=== PATIENT | male | born 1940 | race Caucasian/White ===

== ENCOUNTER → 2020-01-06 12:48 | Outpatient (CLI) | payer MEDICARE, SELFPAY ==
--- NOTE | ~2020-01-06 | XR_ITS ---
EXAMINATION: XR abdomen/kub 1V EXAM DATE: 01/06/2020 13:04 INDICATION: Gross hematuria, pain with urination, dysuria. History of kidney stones 10 years ago. TECHNIQUE: Frontal projection(s) of the abdomen for interpretation. There is no prior study for molly dougherty. FINDINGS: There is moderate amount of colonic stool and gas. No small bowel dilation, nonobstructiv e bowel gas pattern. There is a 4 mm calcification projecting over right upper quadrant, appears to be just above the renal contour. If it is a calyceal stone, would be likely nonobstructing superior c alyceal stone. There is no organomegaly suspected. There are bony degenerative changes. Sternot tello wire. IMPRESSION: Right upper quadrant density, possible superior calyceal stone. Reviewed, dictated and finalized at location A.
== END ==
PROVIDERS: PCP Internal Medicine; Visit Provider Nurse Practitioner Adult Health
DX: R31.0 Gross hematuria (principal); R93.5 Abnormal findings on diagnostic imaging of other abdominal regions, including retroperitoneum
CPT/HCPCS: 74018

== ENCOUNTER 2020-04-07 10:03 | Outpatient (CLI) | payer MEDICARE, SELFPAY ==
--- NOTE | ~2020-04-07 | XR_ITS ---
EXAMINATION: XR chest 2V EXAM DATE: 04/07/2020 10:24 INDICATION: Edema, shortness of breath. TECHNIQUE: Frontal and lateral projections of the chest obtained and reviewed. Comparison is made to prior examination from 05/20/2018. FINDINGS: Sternotomy wires are present without findings to suggest sternal dehiscence. Right middle l obe granuloma. Mild hyperinflation. The lungs are otherwise clear. There are no pleural effusions. The cardiomediastinal silhouette is within normal limits. There is no pneumothorax suspected. The b ones and soft tissues are unremarkable. There is no significant interval change. IMPRESSION: No acute cardiopulmonary findings. Reviewed, dictated and finalized at location B.
[2020-04-07 10:52] LABS: Basophils Percent Auto 0.6 % (0.2-1.2); Eosinophils Absolute Auto 0.3 K/mm3 (0-0.3); Eosinophils Percent Auto 4.7 % (0-4.4); Hemoglobin 15.1 g/dL (14.0-18.0); Immature Granulocyte Absolute 0.02 K/mm3 (0.00-0.031); Immature Granulocyte Percent A 0.3 % (0-0.5); Lymphocytes Absolute Auto 1.72 K/mm3 (0.9-3.2); Lymphocytes Percent Auto 26.7 % (18.3-44.2); Mean Corpuscular HGB Conc 34.3 g/dl (32-36); Mean Corpuscular Hemoglobin 30.5 pg (26-34); Mean Corpuscular Volume 88.9 fl (80-100); Mean Platelet Volume 8.4 fl (7.4-10.4); Monocytes Absolute Auto 0.7 K/mm3 (0.1-0.6); Monocytes Percent Auto 10.6 % (2.6-8.5); Neutrophils Absolute Auto 3.7 K/mm3 (1.3-6.7); Neutrophils Percent Auto 57.1 % (45.5-73.1); Platelet Count Result 130 k/mm3 (150-375); Red Blood Count 4.95 M/mm3 (4.6-6.20); Red Cell Distribution Width 13.2 % (11.5-14.5); White Blood Count 6.4 K/mm3 (4.5-10.0)
--- NOTE | 2020-04-07 10:54 | ECG_ITS ---
Measurements Intervals [place] Rate: 70 P: 73 VT: 183 QRS: -5 QRSD: 116 T: 76 QT: 404 QTc: 436 Interpretive Statements SINUS RHYTHM VENTRICULAR PREMATURE COMPLEX BORDERLINE T WAVE ABNORMALITY- HIGH LATERAL LEADS BORDERLINE ECG Electronically Signed On 04-07-2020 11:56:17 CDT by Seymour Burnham D.O.
[2020-04-07 11:06] LABS: Blood Urea Nitrogen 16 mg/dL (9-20); Calcium 9.4 mg/dL (8.4-10.2); Carbon Dioxide 29 mmol/L (22-30); Chloride 102 mmol/L (98-107); Estimated Glomerular Filt Rate > 60; Glucose 216 mg/dL (75-110); Potassium 4.5 mmol/L (3.4-5.0); Sodium 137 mmol/L (137-145)
[2020-04-07 11:15] LABS: NT Pro B Type Natriuretic Pept 114 PG/ML (5-100)
== END 2020-04-07 10:04 | disposition home or self-care (01) ==
LOC: ANHIMG 10:07
PROVIDERS: PCP Internal Medicine; Visit Provider Clinical Nurse Specialist
DX: R60.9 Edema, unspecified (principal); R06.02 Shortness of breath; R94.31 Abnormal electrocardiogram [ECG] [EKG]
CPT/HCPCS: 36415; 71046; 80048; 83880; 85025; 93005

== ENCOUNTER 2020-04-21 14:50 | Outpatient (CLI) | payer MEDICARE, SELFPAY ==
--- NOTE | 2020-04-21 15:02 | ECHO_ITS ---
Patient Info Name: Cachorro Lozano Age: 80 years : 1940 Gender: Male Ht: 68 in Wt: 195 lbs BSA: 2.08 m2 HR: 65 bpm BP: 160 / 87 mmHg Heart Rhythm: Sinus Rhythm Technical Quality: Good Exam Date: 04/21/2020 3:13 PM Exam Location: [facility] Pulmonary Patient Status: Outpatient Admit Date: 04/21/2020 Staff Ordering Physician: Martha Reynolds Inbound Sales Manager: Rodney Marks RDCS Attending Provider: Martha Reynolds Referring Physician: Rodolfo DUMONT; Exam Type: CA echo doppler color flow Study Info Indications R60.9 - Edema, unspecified Complete two-dimensional, color flow and Doppler transthoracic echocardiogram is performed. History/Risk Factors Edema, CAD s/p CABG 2003. Summary 1. Normal left ventricular size with moderate concentric hypertrophy. Visual ejection fraction is 50-55%, measured is 56%. Overall good left ventricular function, though with hypokinesis of the apex, apical septal wall and apical lateral wall. Grade 1 diastolic dysfunction. 2. No significant valve disease. 3. Normal sinus rhythm. Left Ventricle Left ventricular chamber dimension is normal. Left ventricular systolic function is normal, estimated at 50-55%. There is moderately increased left ventricular wall thickness. Left ventricular septal wall motion is normal. The left ventricular diastolic function is grade I diastolic dysfunction. Right Ventricle Right ventricular chamber dimension is normal. Right ventricular systolic function is normal. Left Atria Left atrial chamber dimension is normal. Right Atria Right atrial chamber dimension is normal. Aortic Valve The aortic valve is trileaflet. There is no aortic valve sclerosis. There is no aortic valve stenosis. There is trace aortic valve regurgitation. Pulmonic Valve The pulmonic valve is normal. There is no pulmonic valve stenosis. There is no pulmonic regurgitation. Mitral Valve The mitral valve has normal leaflets. There is no mitral valve stenosis. There is trace mitral valve regurgitation. Tricuspid Valve The tricuspid valve leaflets are normal. There is no significant tricuspid valve stenosis. There is no tricuspid valve regurgitation. No pulmonary hypertension, estimated pulmonary arterial systolic pressure is Empty. Pericardium/Pleural The pericardium appears normal. There is no pericardial effusion. Inferior Vena Cava Normal inferior vena cava with >50% collapse upon inspiration consistent with Empty right atrial pressure, 5 mmHg. Aorta The aortic root size at the sinus of Valsalva is normal. The prox ascending aorta size is normal. Left Ventricular Outflow Tract Name Value Normal LVOT Doppler LVOT Peak Gradient 3 mmHg LVOT Mean Gradient 2 mmHg LVOT VTI 19 cm LVOT VTI/AV VTI Ratio 1.1 Mitral Valve Name Value Normal MV Doppler MV
== END 2020-04-21 14:51 | disposition home or self-care (01) ==
PROVIDERS: PCP Internal Medicine; Visit Provider Clinical Nurse Specialist
DX: R60.9 Edema, unspecified (principal)
CPT/HCPCS: 93306

== ENCOUNTER 2020-05-03 08:10 | Outpatient (CLI) | payer MEDICARE, SELFPAY ==
--- NOTE | ~2020-05-03 | US_ITS ---
US arterial ankle brachial ind INDICATION: Skin cancer. Previous bypass surgery. TECHNIQUE: Segmental pressures and plethysmographic and Doppler waveforms of the brachial and lower e xtremity arteries were obtained. COMPARISON: None. FINDINGS: Right and left brachial artery pressures of 127 mm Hg and 129 mm Hg, respectively, are concordant (no rmal difference <= 30 mmHg). The right ankle-brachial index (JOE) is 1.09 (normal >= 0.9-1.0). The right great toe-brachial index (TBI) is 0.84 (normal >= 0.60). The left JOE is 1.31. The left TBI is 0.93. IMPRESSION: 1. Normal bilateral ankle-brachial indices. Reviewed, dictated and finalized at location A.
== END 2020-05-03 08:11 | disposition home or self-care (01) ==
PROVIDERS: PCP Internal Medicine; Visit Provider Clinical Nurse Specialist
DX: M79.89 Other specified soft tissue disorders (principal)
CPT/HCPCS: 93922

== ENCOUNTER 2020-05-12 07:30 | Outpatient (CLI) | payer MEDICARE, SELFPAY ==
--- NOTE | ~2020-05-12 | NM_ITS ---
EXAMINATION: NM talib stress w perfusion DATE: 05/12/2020 10:42 INDICATION: Coronary artery disease presenting with shortness of breath and fatigue. TECHNIQUE: Rest images were obtained following intravenous administration of 10 mCi Tc99m tetrofosmin (Myoview). The patient was infused intravenously with Lexiscan (Regadenoson). Then, 31.77 mCi Tc99m tetrofosmin (Myoview) was administered intravenously, and stress images were obtained. Repeat stress images were obtained in prone position. Data was reconstructed into short axis and horizontal and jennifer tical long axis SPECT images. Gated SPECT images were also obtained. COMPARISON: None. FINDINGS: Moderate severity nonreversible fixed perfusion defect consistent with infarct involving th e apical, apical lateral, anterior apical, mid anterior and mid anterolateral segments. Mild reversib le ischemia at the anterior basilar segment with additional reversible ischemia extending into the ad jacent region of infarct at the mid anterior segment. There is normal left ventricular chamber size w ith mild global hypokinesis and more focal hypokinesis and decreased wall thickening at the mid anter ior segment. Left ventricular ejection fraction measures 43%. IMPRESSION: 1. Small region of mild ischemia at the mid anterior and basilar anterior segments. 2. Larger moderate severity fixed infarct involving the apical, apical lateral, apical anterior, mid anterior and mid anterolateral segments. 3. Left ventricular ejection fraction measuring 43%. Reviewed, dictated and finalized at location A. IMPRESSION: 1. Small region of mild ischemia at the mid anterior and basilar anterior segme nts. 2. Larger moderate severity fixed infarct involving the apical, apical lateral, apical anterior, mid anterior and mid anterolateral segments. 3. Left ventricular ejection fraction measuring 43%.
--- NOTE | 2020-05-12 08:01 | EST_ITS ---
Patient Info Name: Cachorro Lozano Age: 80 years : 1940 Gender: Male Ht: 68 in Wt: 195 lbs BSA: 2.08 m2 HR: 56 bpm BP: 130 / 74 mmHg Heart Rhythm: Sinus Rhythm Exam Date: 05/12/2020 9:04 AM Exam Location: [facility] Stress Patient Status: Outpatient Admit Date: 05/12/2020 Staff Ordering Physician: Martha Reynolds Attending Provider: Martha Reynolds Nurse: Sarah Flanagan, ANP, ACNP-BC Exam Type: CA stress talib w NM Study Info Indications - Atherosclerotic Heart Disease A regadenoson stress test was performed. Summary 1. No abnormal ST/T wave changes with lexiscan. 2. Follow up on SPECT images. Protocol: Lexiscan Stress ECG Details Stage: REST Duration (min): 1 min : 8 sec HR (bpm): 55 SBP (mmHg): 130 DBP (mmHg): 74 Stage: REST Duration (min): 10 min : 3 sec HR (bpm): 61 SBP (mmHg): 130 DBP (mmHg): 74 Stage: STAGE 1 Duration (min): 0 min : 59 sec HR (bpm): 79 SBP (mmHg): 143 DBP (mmHg): 90 Stage: RECOVERY Duration (min): 1 min : 0 sec HR (bpm): 78 SBP (mmHg): 143 DBP (mmHg): 90 Stage: RECOVERY Duration (min): 2 min : 0 sec HR (bpm): 79 SBP (mmHg): 143 DBP (mmHg): 90 Stage: RECOVERY Duration (min): 3 min : 0 sec HR (bpm): 78 SBP (mmHg): 152 DBP (mmHg): 82 Stage: RECOVERY Duration (min): 4 min : 0 sec HR (bpm): 78 SBP (mmHg): 152 DBP (mmHg): 82 Stage: RECOVERY Duration (min): 4 min : 2 sec HR (bpm): 77 SBP (mmHg): 152 DBP (mmHg): 82 Rest HR: 61 bpm Peak HR: 86 bpm Rest Sys BP: 130 mmHg Peak Sys BP: 152 mmHg Max Pred HR: 141 bpm % Max Pred HR: 61 % Target HR: 120 bpm Max RPP: 13,072 bpm*mmHg Termination Reason: Completed protocol Cardiac Symptoms: Shortness of breath Total Time: 1 min : 0 sec Rest Comer BP: 74 mmHg Peak [place] BP: 82 mmHg Total Dose: 0.4 mg Resting ECG Normal sinus rhythm. Stress ECG No abnormal ST/T wave changes with lexiscan. Arrhythmias Occasional PVCs. Report Signatures
== END 2020-05-12 07:31 | disposition home or self-care (01) ==
PROVIDERS: PCP Internal Medicine; Visit Provider Clinical Nurse Specialist
DX: I25.10 Atherosclerotic heart disease of native coronary artery without angina pectoris (principal); R06.02 Shortness of breath; R53.83 Other fatigue
CPT/HCPCS: 78452; 93017; A9502

== ENCOUNTER 2020-05-26 02:39 | Outpatient (CLI) | payer MEDICARE, SELFPAY ==
[2020-05-26 18:39] LABS: SARS-CoV-2 RNA PCR Negative
== END 2020-05-26 02:40 | disposition home or self-care (01) ==
LOC: ANHCOVIDDT 02:40
PROVIDERS: PCP Internal Medicine; Visit Provider Internal Medicine Cardiovascular Disease
DX: Z01.812 Encounter for preprocedural laboratory examination (principal); Z20.828 Contact with and (suspected) exposure to other viral communicable diseases
CPT/HCPCS: 87635; C9803; U0003

== ENCOUNTER 2020-05-28 05:08 | Day surgery (SDC) | payer MEDICARE, SELFPAY ==
[2020-05-27 14:03] VITALS: BMI 29.6
[2020-05-28] VITALS (16 sets, daily range): BP systolic 109–135; BP diastolic 63–81; PULSE 54–69; RESP 10–21; TEMP 36.2–37; O2SAT 94–97; BMI 29.0
[2020-05-28 09:42] LABS: Basophils Percent Auto 0.5 % (0.2-1.2); Eosinophils Absolute Auto 0.3 K/mm3 (0-0.3); Hemoglobin 15.4 g/dL (14.0-18.0); Immature Granulocyte Absolute 0.02 K/mm3 (0.00-0.031); Immature Granulocyte Percent A 0.3 % (0-0.5); Lymphocytes Absolute Auto 1.68 K/mm3 (0.9-3.2); Lymphocytes Percent Auto 25.5 % (18.3-44.2); Mean Corpuscular Hemoglobin 30.5 pg (26-34); Mean Corpuscular Volume 87.1 fl (80-100); Mean Platelet Volume 8.9 fl (7.4-10.4); Monocytes Absolute Auto 0.6 K/mm3 (0.1-0.6); Monocytes Percent Auto 9.6 % (2.6-8.5); Neutrophils Absolute Auto 3.9 K/mm3 (1.3-6.7); Neutrophils Percent Auto 59.1 % (45.5-73.1); Platelet Count Result 125 k/mm3 (150-375); Red Blood Count 5.05 M/mm3 (4.6-6.20); White Blood Count 6.6 K/mm3 (4.5-10.0)
[2020-05-28 09:43] LABS: INR 1.1; Prothrombin Time 13.6 Seconds (11.1-14.7)
[2020-05-28 10:12] LABS: Anion Gap 8 mmol/L (8-16); Blood Urea Nitrogen 20 mg/dL (9-20); Calcium 9.1 mg/dL (8.4-10.2); Carbon Dioxide 29 mmol/L (22-30); Chloride 102 mmol/L (98-107); Estimated CRCL calculation 71 ml/min; Estimated Glomerular Filt Rate > 60; Glucose 192 mg/dL (75-110); Sodium 139 mmol/L (137-145)
--- NOTE | 2020-05-28 10:46 | WPDMODSED ---
Moderate Sedation Note-Pt Data Patient Data Diagnosis: Abnormal stress test, CAD/CABG. fatigue, BOLDEN Present Complaint: fatigue Procedure to be performed/Plan: Left heart catheterization with selective left and right coronary angiography with bypass graft angiography and left ventriculography and hemodynamics and possible percutaneous intervention and stent implantation Allergies Allergy/AdvReac Type Severity Reaction Status Date / Time No Known Allergies Allergy Verified 09/09/19 10:02 Home Medications Medication Instructions Recorded Confirmed Type aspirin 81 mg tablet,delayed 81 mg PO DAILY 09/09/19 05/27/20 History release furosemide 40 mg tablet 40 mg PO QAM 09/09/19 05/27/20 History potassium chloride 20 mEq 20 meq PO DAILY 09/09/19 05/27/20 History tablet,extended release vitamin B complex 1 tablet PO DAILY 09/09/19 05/27/20 History tamsulosin 0.4 mg capsule 0.4 mg PO DAILY #90 cap 01/06/20 05/27/20 Rx cetirizine 10 mg tablet 10 mg PO DAILY tablet 02/11/20 05/27/20 History cholecalciferol (vitamin D3) 125 125 mcg PO DAILY 02/11/20 05/27/20 History mcg (5,000 unit) capsule fluticasone propionate 50 2 spray NASAL DAILY #15.8 ml 03/09/20 05/27/20 Rx mcg/actuation nasal spray,suspension metformin 500 mg tablet 500 mg PO BID #180 tablet 03/09/20 05/27/20 Rx ezetimibe 10 mg-simvastatin 40 mg 1 tablet PO DAILY #90 tablet 03/24/20 05/27/20 Rx tablet finasteride 5 mg tablet 5 mg PO DAILY #90 tablet 04/06/20 05/27/20 Rx losartan 50 mg tablet 50 mg PO DAILY #90 tablet 04/07/20 05/27/20 Rx glimepiride 4 mg tablet 4 mg PO QAM #90 tablet 04/13/20 05/27/20 Rx hydroxyzine HCl 10 mg tablet 10 mg PO .at bedtime PRN #30 tablet 04/14/20 05/27/20 Rx sertraline 100 mg tablet 100 mg PO DAILY #90 tablet 05/07/20 05/27/20 Rx cyanocobalamin (vitamin B-12) 100 mcg PO DAILY 05/27/20 05/27/20 History [Vitamin B-12] glucosamine-chondroitin 1 cap PO DAILY 05/27/20 05/27/20 History metoprolol succinate 25 mg PO DAILY 05/27/20 05/27/20 History multivitamin 1 tablet PO DAILY 05/27/20 05/27/20 History bjexr-[id number]-dyv-ryy-qsmi oil 1 cap PO DAILY 05/27/20 05/27/20 History Current Medications: Active Medications Sodium Chloride (Normal Saline Iv) 500 mls @ 100 mls/hr IV CONT .Q5H KELECHI Sedation/Anesthesia: No previous sedation/anesthesia problems (including family history). [facility] Past Medical History Medical History Basal cell carcinoma of skin 10/2019 CAD (coronary artery disease) Hypercholesterolemia Hypertension Squamous cell cancer of skin of forearm Type 2 diabetes mellitus Surgical History Surgical History H/O sinus surgery 1989 S/P triple vessel bypass 2005 Family History Family History Father Family history of cardiovascular disease Family history of emphysema, Onset Age: 64 Hypertension Mother Family history of cardiovascular disease Family history of cardiac disorder Daughter Asthma Fibromyalgia Narcolepsy Son Hypertension Social History Social History Smoking status: Never smoker Second hand tobacco smoke exposure: Yes Alcohol intake: never Substance use: never Substance use type: does not use Living arrangements: with family Gender identity (if verbalized by the patient): Male Spiritual care concerns: No Mod Sed Physical Exam Physical Exam Pre Procedural Exam: Normal: Appearance, Eyes, Ears, Nose, Neck ( supple, normal range of motion), Throat ( posterior hypopharynx clear, nonerythematous), Airway ( normal anatomy, no obstruction), Lungs ( clear to auscultation bilaterally), Heart Size, Heart Rate, Heart Rhythm, Neuro Exam, Abdomen, Liver, Extremities ( healed median sternotomy scar) and Skin Hours since solid foods: 12 Hours since liquid intake:
--- NOTE | 2020-05-28 11:58 | PM.PROC ---
Procedure Note - Detailed Date of procedure: 05/28/20 Pre-op diagnosis: abnormal stress test, hx of CAD Post-op diagnosis: same Procedure performed: Left heart catheterization with left and right coronary angiography, bypass graft angiography, left ventricular hemodynamics Description of procedure: BRIEF HISTORY OF PRESENT ILLNESS: Patient is a pleasant 80-year-old male with a history of JAYSON on CPAP, hypertension, dyslipidemia, CAD with prior 3 vessel CABG 2005, diabetes mellitus with progressive shortness of breath, fatigue and declining activity tolerance who underwent noninvasive ischemic evaluation which revealed mid and basal anterior ischemia with large fixed defects apical anterolateral segments with EF 43% referred for coronary angiography to delineate coronary anatomy and bypass graft patency. PROCEDURES PERFORMED: 1. Left heart catheterization 2. Selective left and right coronary angiography 3. Left ventricular hemodynamics 4. Selective bypass graft angiography 4. Moderate/conscious sedation administration CATHETERS UTILIZED: Left coronary system- 5 [place] JL4 catheter Right coronary system- 5 [place] JR4 catheter Left ventriculography and hemodynamics- 5 [place] angled pigtail catheter STRONG to LAD- 5 [place] JUAN catheter SVG to RCA, SVG to OM- 5 [place] JR4 catheter PROCEDURE IN DETAIL: After verbal and written informed consent was obtained the patient, risks, benefits, and alternatives explained in detail the patient agreed to proceed with the plan of care as outlined above. The patient was subsequently brought to the cardiac catheterization lab, placed on the cardiac catheterization table, and prepped and draped in the usual sterile fashion. Utilizing approximately 16cc of 1% subcutaneous Lidocaine, the right groin was then locally anesthetized. Utilizing the modified Seldinger technique, a 5 [place] arterial vascular access sheath was inserted in the right common femoral artery easily and without complications. Through this access, coronary angiography was subsequently obtained in multiple standard re-projections. Following this, bypass graft angiography was performed in multiple re-projections. Then, a 5 [place] angled pigtail catheter was advanced retrograde across aortic valve into the cavity of the left ventricle. Left ventriculography was not performed, however, pullback across aortic valve was subsequently recorded. The vascular access sheath and angiographic catheters were flushed before and after catheter exchanges. At the conclusion of the diagnostic portion of the procedure, all angiographic guidewires and catheters were removed and the 5 [place] arterial vascular access sheath was then pulled and satisfactory hemostasis was achieved using manual compression. There no complications noted at the conclusion of the diagnostic portion of the study. MODERATE SEDATION/ANESTHESIA ADMINISTRATION: Patient reports no prior problems with sedation/anesthesia. Please see pre-sedation noted for physical examination documentation. Sedation start time was 1052 and end time was 1139 for a total intra-service/procedure face-face time of 47 minutes. A total of 2 mg intravenous Versed and a total of 50 mcg intravenous Fentanyl in multiple divided doses was administered for moderate sedation. Moderate sedation was administered by qualified/certified observer Tania Owens RN under my supervision with intra-procedure [id number] observation and management throughout the entirety of the procedure. There were no other issues or complications and patient tolerated the procedure well. See post-anesthesia documentation. Anesthesia: local and other (moderate/conscious sedation) Surgeon: Pedro Luis Thompson MD Estimated blood loss (mL): 10 Drains: No Packing: No Pathology: none sent Complications: No immediate complications Condition: stable Disposition: same day Findings: CORONARY ANGIOGRAPHY: The LEFT MAIN arose from the left titus
== END 2020-05-28 17:27 | disposition home or self-care (01) ==
PROVIDERS: PCP Internal Medicine; Visit Provider Internal Medicine Cardiovascular Disease
PROC: 4A023N7 Measurement of Cardiac Sampling and Pressure, Left Heart, Percutaneous Approach (ICD-10-PCS; CPT 93459; principal; 2020-05-28 10:00)
DX: R94.39 Abnormal result of other cardiovascular function study (principal); I25.10 Atherosclerotic heart disease of native coronary artery without angina pectoris; G47.33 Obstructive sleep apnea (adult) (pediatric); I10 Essential (primary) hypertension; E78.5 Hyperlipidemia, unspecified; E11.9 Type 2 diabetes mellitus without complications; R06.02 Shortness of breath; R53.83 Other fatigue
CPT/HCPCS: 36415; 80048; 85025; 85610; 93459; A9270; C1769; C1887; C1894; J1644; J2250; J3010; J7040

== ENCOUNTER → 2020-12-18 01:57 | Outpatient (CLI) | payer MEDICARE, SELFPAY ==
[2020-12-18 18:53] LABS: SARS-CoV-2 RNA PCR Negative
== END ==
PROVIDERS: PCP Family Medicine; Visit Provider Internal Medicine Critical Care Medicine
DX: Z01.812 Encounter for preprocedural laboratory examination (principal); Z20.822 Contact with and (suspected) exposure to COVID-19
CPT/HCPCS: C9803; U0003; U0005

== ENCOUNTER 2020-12-21 09:05 | Outpatient (CLI) | payer MEDICARE, SELFPAY ==
--- NOTE | 2021-01-09 09:51 | WPDSLEEPSTUD ---
Sleep Study Ordering Provider: Selina El MD Interpreting Physician: Selina El MD Sleep Study Type: CPAP Titration Height: 1.73 m Weight: 83.21 kg Body Mass Index: 27.8 Neck Circumference (inches): 16 [place]: 10 Reason for Sleep Study known JAYSON with increased central apneas on his download, increased hypersomnolenc; he returns for titration and possible BiPAP Sleep History Cachorro Lozano is a 80 year old man with known JAYSON who has been on CPAP 12 cm with worsening sleep. He had a cardiac surgery in 2004, has had pulmonary edema which improved wearing CPAP. His download shows that he is compliant, using his device for long periods, 10 hours a day with increased numbers of central apneas. He has CHF with an EF of 43% on an echo 05/27/2020. Without CPAP he constantly snores loudly. He rarely awakens at night with heartburn, belching or coughing. He frequently awakens from sleep feeling short of breath. CPAP, sinus medications and cardiac medications help him sleep for comfortably. He frequently has trouble sleeping with a cold. He frequently wakes up gasping for breath at night and frequently has breathing problems at night observed by others. He rarely sweats excessively at night. He occasionally notices his heart pounding or beating irregularly night. He frequently falls asleep during the day, frequently falls asleep involuntarily but never while driving. He does not have loss of muscle tone with strong emotion. He does not have daytime difficulties due to excessive sleepiness. He occasionally feels paralyzed on waking or falling asleep. He occasionally has vivid dreamlike scenes upon awakening or falling asleep. He never feels afraid to go to sleep. He occasionally has nightmares, occasionally remembers his dreams and occasionally has racing thoughts. He rarely feels sad or depressed. He frequently has anxiety. He occasionally has muscular tension. He rarely notices parts of his body jerking. He frequently kicks at night. He occasionally has crawling and aching feelings in his legs. He rarely has any kind of leg pain at night. He does not have morning jaw pain and rarely grinds his teeth at night. He rarely is bothered by pain during the day, rarely awakened by pain at night and rarely wakes up feeling stiff in the morning. He occasionally wakes up with sore achy muscles and pain in the spine. He takes sedatives, has memory problems, concentration difficulties, insomnia, nightmares and sexual problems. His normal bedtime is 11:00 p.m. falling asleep within 30-40 minutes typically waking once at night to urinate. He stays awake for 20 minutes before he is able to return to sleep. He wakes in the morning at 7:00 a.m.. He estimates 8 hours of sleep at night. His weekend schedule is the same. He takes naps in the afternoon. A short nap is not refreshing. He is usually drowsy in the morning for 2 hours or longer. Habits: Never smoked tobacco. Caffeine 1 serving of tea daily. No alcohol or recreational drugs. [facility] Past Medical History Medical History (Updated 01/09/21 @ 11:54 by Selina El MD) Basal cell carcinoma of skin 10/2019 CAD (coronary artery disease) Hematuria urine negative for blood Kidney stones (~2009) L1 vertebral fracture Squamous cell cancer of skin of forearm (~2017) Type 2 diabetes mellitus Surgical History Surgical History H/O sinus surgery 1989 S/P triple vessel bypass 2005 Family History Family History Father , age 64, heart problems Family history of cardiovascular disease Family history of emphysema, Onset Age: 64 Hypertension Mother , age 90, heart problems Family history of cardiovascular disease [place]
[2021-01-10 16:07] VITALS: BMI 27.8
== END 2020-12-21 09:06 | disposition home or self-care (01) ==
LOC: ANHCSM 09:06
PROVIDERS: PCP Family Medicine; Visit Provider Internal Medicine Critical Care Medicine
DX: G47.33 Obstructive sleep apnea (adult) (pediatric) (principal); G47.31 Primary central sleep apnea
CPT/HCPCS: 95811

== ENCOUNTER → 2021-01-28 00:50 | Outpatient (CLI) | payer MEDICARE, SELFPAY ==
[2021-01-28 21:02] LABS: SARS-CoV-2 RNA PCR Negative
== END ==
PROVIDERS: PCP Family Medicine; Visit Provider Internal Medicine Critical Care Medicine
DX: R68.89 Other general symptoms and signs (principal); Z20.822 Contact with and (suspected) exposure to COVID-19
CPT/HCPCS: C9803; U0003; U0005

== ENCOUNTER 2021-01-31 09:08 | Outpatient (CLI) | payer MEDICARE, SELFPAY ==
--- NOTE | 2021-02-14 15:09 | WPDSLEEPSTUD ---
Sleep Study Date of Study: 01/31/21 Ordering Provider: Selina El MD Interpreting Physician: Selina El MD Sleep Study Type: BiPAP Titration Height: 1.73 m Weight: 86.183 kg Body Mass Index: 28.8 Neck Circumference (inches): 17 [place]: 8 Reason for Sleep Study Attempted CPAP titration 12/21/2020, no optimal pressure; presents for BiPAP titration Sleep History Cachorro Lozano is a 80 year old man with known JAYSON who has been on CPAP 12 cm with worsening sleep. He had a cardiac surgery in 2004, has had pulmonary edema which improved wearing CPAP. His download shows that he is compliant, using his device for long periods, 10 hours a day with increased numbers of central apneas. He has CHF with an EF of 43% on an echo 05/27/2020. On December 21, 2020 he had a CPAP titration with no optimal pressure obtained, and had an EF of 43% on a Lexiscan on 05/12/2020. Without CPAP he constantly snores loudly. He rarely awakens at night with heartburn, belching or coughing. He frequently awakens from sleep feeling short of breath. CPAP, sinus medications and cardiac medications help him sleep for comfortably. He frequently has trouble sleeping with a cold. He frequently wakes up gasping for breath at night and frequently has breathing problems at night observed by others. He rarely sweats excessively at night. He occasionally notices his heart pounding or beating irregularly night. He frequently falls asleep during the day, frequently falls asleep involuntarily but never while driving. He does not have loss of muscle tone with strong emotion. He does not have daytime difficulties due to excessive sleepiness. He occasionally feels paralyzed on waking or falling asleep. He occasionally has vivid dreamlike scenes upon awakening or falling asleep. He never feels afraid to go to sleep. He occasionally has nightmares, occasionally remembers his dreams and occasionally has racing thoughts. He rarely feels sad or depressed. He frequently has anxiety. He occasionally has muscular tension. He rarely notices parts of his body jerking. He frequently kicks at night. He occasionally has crawling and aching feelings in his legs. He rarely has any kind of leg pain at night. He does not have morning jaw pain and rarely grinds his teeth at night. He rarely is bothered by pain during the day, rarely awakened by pain at night and rarely wakes up feeling stiff in the morning. He occasionally wakes up with sore achy muscles and pain in the spine. He takes sedatives, has memory problems, concentration difficulties, insomnia, nightmares and sexual problems. His normal bedtime is 11:00 p.m. falling asleep within 30-40 minutes typically waking once at night to urinate. He stays awake for 20 minutes before he is able to return to sleep. He wakes in the morning at 7:00 a.m.. He estimates 8 hours of sleep at night. His weekend schedule is the same. He takes naps in the afternoon. A short nap is not refreshing. He is usually drowsy in the morning for 2 hours or longer. Habits: Never smoked tobacco. Caffeine 1 serving of tea daily. No alcohol or recreational drugs. [facility] Past Medical History Medical History Basal cell carcinoma of skin 10/2019 CAD (coronary artery disease) Hematuria urine negative for blood Kidney stones (~2009) L1 vertebral fracture Squamous cell cancer of skin of forearm (~2017) Type 2 diabetes mellitus Surgical History Surgical History H/O sinus surgery 1989 S/P triple vessel bypass 2005 Family History Family History Father , age 64, heart problems Family history of cardiovascular disease Family history of emphysema, Onset Age:
[2021-02-14 15:37] VITALS: BMI 28.8
== END 2021-01-31 09:09 | disposition home or self-care (01) ==
LOC: ANHCSM 09:09
PROVIDERS: PCP Family Medicine; Visit Provider Internal Medicine Critical Care Medicine
DX: G47.33 Obstructive sleep apnea (adult) (pediatric) (principal)
CPT/HCPCS: 95811

== ENCOUNTER → 2021-10-28 09:53 | Outpatient (CLI) | payer MEDICARE, SELFPAY ==
[2021-10-28 16:30] LABS: Influenza A QL RT-PCR Negative (Negative); Influenza B QL RT-PCR Negative (Negative); SARS-CoV-2 RNA PCR Negative
== END ==
PROVIDERS: PCP Family Medicine; Visit Provider Family Medicine
DX: R09.89 Other specified symptoms and signs involving the circulatory and respiratory systems (principal); R50.9 Fever, unspecified; Z20.822 Contact with and (suspected) exposure to COVID-19
CPT/HCPCS: 87502; C9803; U0003; U0005

== ENCOUNTER → 2023-07-24 08:36 | Outpatient (CLI) | payer MEDICARE, SELFPAY ==
--- NOTE | ~2023-07-24 | US_ITS ---
Ultrasound of the Abdominal Aorta INDICATION: Abdominal aortic aneurysm TECHNIQUE: Grayscale, color Doppler, and pulsed Doppler images of the aorta and common iliac arteries were obtained. COMPARISON: None. FINDINGS: Maximum vascular dimensions are as follows: Proximal aorta: 2.8 cm Mid aorta: 1.9 cm Distal aorta: 1.8 cm Right common iliac artery: 0.9 cm Left common iliac artery: 1.0 cm There is no evidence of abdominal aortic aneurysm. IMPRESSION: No abdominal aortic aneurysm. Reviewed, dictated and finalized at location M.
== END ==
PROVIDERS: PCP Internal Medicine Cardiovascular Disease; Visit Provider Family Medicine
DX: Z13.6 Encounter for screening for cardiovascular disorders (principal)
CPT/HCPCS: 76775

== ENCOUNTER 2023-08-14 07:26 | Outpatient (CLI) | payer MEDICARE, SELFPAY ==
--- NOTE | ~2023-08-14 | CT_ITS ---
EXAMINATION: CTA chest DATE: 08/14/2023 08:09 INDICATION: Aortic aneurysm without rupture TECHNIQUE: Computed tomographic angiography (CTA) of the chest was performed with 100 mL Omnipque-350 intravenous contrast. Maximum intensity projection 3D-reconstructions of the aorta and other arterie s were constructed by the technologist on a separate workstation. The dose-length product (DLP) was 4 24.28 mGy-cm. Automated exposure control and iterative reconstruction technique were employed. COMPARISON: None. FINDINGS: The aorta measures 3.4 cm at the sinuses of Valsalva and 3 cm at the level of the main pulm onary artery. Maximum dimension of the descending aorta is 2.6 cm. No aortic dissection is identified . There is a 6 mm nodule in the superior segment of the right lower lobe. There is a 4 mm nodule of t he right upper lobe. There is a 6 mm nodule abutting the diaphragm in the right lower lobe on image 7 4. There is mild dependent atelectasis. No pleural effusion or pneumothorax. Small thyroid nodules me asure up to 5 mm on the right. There is a 2 cm subcutaneous cystic lesion in the midline anterior nec k projecting at the level of the thyroid. No pathologically enlarged thoracic lymph nodes are identif ied. The heart size is normal. 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 Changes of c oronary artery bypass grafting are noted. There is moderate thoracic spondylosis. IMPRESSION: 1. No aneurysm or dissection of aorta. 2. Multiple right lung nodules, likely old granulomatous disease. However, follow-up low-dose chest C T in 6-12 months is recommended. Reviewed, dictated and finalized at location L. TECHNICIAN IMPRESSION: 1. No aneurysm or dissection of aorta. 2. Multiple right lung nodules, likely old granulomatous disease. However, foll ow-up low-dose chest CT in 6-12 months is recommended.
[2023-08-14 07:59] LABS: Estimated Glomerular Filt Rate > 60
== END 2023-08-14 07:27 | disposition home or self-care (01) ==
PROVIDERS: PCP Family Medicine; Visit Provider Internal Medicine Cardiovascular Disease
DX: I71.21 Aneurysm of the ascending aorta, without rupture (principal); R91.8 Other nonspecific abnormal finding of lung field
CPT/HCPCS: 71275; Q9967

== ENCOUNTER 2024-03-21 07:16 | Outpatient (CLI) | payer MEDICARE, SELFPAY ==
--- NOTE | ~2024-03-21 | CT_ITS ---
CT of the Abdomen and Pelvis: Indication: Hematuria Technique: 2.5 mm axial scans were obtained through the abdomen and pelvis prior to and following in travenous administration of 130 cc of Omnipaque 350. Dose reduction technique was used on this scan b y utilizing automated exposure control and iterative reconstruction technique. The dose-length produc t (DLP) was 1102.91 mGy-cm. Findings: Scans through the lung bases demonstrate linear bibasilar scarring or atelectasis. The liver, spleen, pancreas, gallbladder, left adrenal gland, and kidneys are within normal limits. S mall right adrenal lipoma/myelolipoma present. There are atherosclerotic calcifications of the aorta. No lymphadenopathy. No bowel obstruction or bowel wall thickening. There is no evidence to suggest acute appendicitis. Images through the pelvis were performed. Urinary bladder unremarkable. Prostate gland is markedly en larged, and indents through the bladder base. There is extensive degenerative spondylosis of the lumb ar spine, with probable chronic minimal anterior wedging deformities of L1 and L2. Impression: Markedly enlarged prostate gland. No other significant abnormality of the system identified. Reviewed, dictated and finalized at location . Impression: Markedly enlarged prostate gland. No other significant abnormality of the sy stem identified.
[2024-03-21 07:48] LABS: Estimated Glomerular Filt Rate > 60
== END 2024-03-21 07:17 | disposition home or self-care (01) ==
PROVIDERS: PCP Family Medicine; Visit Provider Physician Assistant
DX: R31.0 Gross hematuria (principal); N40.0 Benign prostatic hyperplasia without lower urinary tract symptoms
CPT/HCPCS: 74178; Q9967

== ENCOUNTER 2024-09-12 08:49 | Outpatient (CLI) | payer MEDICARE, SELFPAY ==
--- NOTE | ~2024-09-12 | US_ITS ---
US aorta DATE: 09/12/2024 09:37 INDICATION: History of abdominal aortic aneurysm. Hypertension, hypercholesterolemia, diabetes. Histo ry of myocardial infarction. TECHNIQUE: Real-time and color flow imaging, Doppler COMPARISON: None FINDINGS: No evidence of abdominal aortic aneurysm. IMPRESSION: No evidence of abdominal aortic aneurysm Reviewed, dictated and finalized at Location A. Reviewed, dictated and finalized at location A. E ROLLER
== END 2024-09-12 08:50 | disposition home or self-care (01) ==
PROVIDERS: PCP Family Medicine; Visit Provider Internal Medicine
DX: I71.40 Abdominal aortic aneurysm, without rupture, unspecified (principal)
CPT/HCPCS: 76775

== ENCOUNTER 2025-05-22 10:36 | Outpatient (CLI) | payer MEDICARE, SELFPAY ==
--- NOTE | ~2025-05-22 | XR_ITS ---
Lumbosacral Spine: AP, oblique, and lateral views Clinical History: Pain Findings: The normal lordotic curve is maintained. There are mild chronic compression fractures of T1 2, L1, and L2. There is diffuse, severe facet arthropathy throughout the lumbar spine. There is mild to moderate degenerative disc change at L5-S1. There are prominent anterior bridging osteophytes from L3 through S1. There are extensive atherosclerotic calcifications of the aorta and The sacroiliac amauri ints are normally outlined. Impression: Chronic compression fractures of T12, L1, L2. Moderate to advanced degenerative spondylitic changes, as above. Reviewed, dictated and finalized at location M. Impression: Chronic compression fractures of T12, L1, L2. Moderate to advanced degenerative spondylitic changes, as above.
--- NOTE | ~2025-05-22 | XR_ITS ---
XR hip LT min 2V 05/22/2025 11:26 Indication: Left hip pain Procedure: 2 views left hip Comparison: No prior studies for comparison. Findings: Mild-moderate osteoarthritis of the left hip. Loose body lateral to the joint space. No fra cture, subluxation or dislocation. Impression: 1: Mild-moderate osteoarthritis of the left hip. Reviewed, dictated and finalized at location A. Impression: 1: Mild-moderate osteoarthritis of the left hip.
--- NOTE | ~2025-05-22 | XR_ITS ---
XR knee LT 3V 05/22/2025 11:26 Indication: Left knee pain Procedure: 4 views left knee Comparison: No prior studies for comparison. Findings: No acute fracture, subluxation or dislocation. There is moderate tricompartment osteoarthri tis. Small joint effusion. There is osteopenia. There is atherosclerosis. Impression: 1: Moderate tricompartment osteoarthritis of the left knee. 2: Small joint effusion. Reviewed, dictated and finalized at location A. Impression: 1: Moderate tricompartment osteoarthritis of the left knee. 2: Small joint effusion.
== END 2025-05-22 10:37 | disposition home or self-care (01) ==
LOC: MICIMG 10:38
PROVIDERS: PCP Pain Medicine Pain Medicine; Visit Provider Student in an Organized Health Care Education/Training Program
DX: M47.896 Other spondylosis, lumbar region (principal); S22.080A Wedge compression fracture of T11-T12 vertebra, initial encounter for closed fracture; X58.XXXA Exposure to other specified factors, initial encounter; M17.12 Unilateral primary osteoarthritis, left knee; M25.462 Effusion, left knee; M16.12 Unilateral primary osteoarthritis, left hip
CPT/HCPCS: 72110; 73502; 73562

== ENCOUNTER 2025-06-09 10:06 | Outpatient (CLI) | payer MEDICARE, SELFPAY ==
--- NOTE | ~2025-06-09 | MR_ITS ---
EXAMINATION: MR lumbar spine wo con DATE: 06/09/2025 10:43 INDICATION: Lumbar radiculopathy TECHNIQUE: Magnetic resonance imaging (MRI) of the lumbar spine was performed without intravenous contrast. Sequences included sagittal T2-weighted FSE, sagittal T2-weighted FS FSE, sagittal T1-weighted FSE, and axial T2-weighted FSE. COMPARISON: None FINDINGS: 2 mm retrolisthesis L2 on L3. Chronic T12, L1 and L2 superior endplate compression fractures with 20% anterior vertebral body height loss.Small T1 hyperintense hemangioma at T11 and L1. Marrow signal is otherwise normal. Mild disc height loss at T11-T12 and T12-L1 with localized widening of the facets of the superior endplate compression fractures. Interstitial widening of the central L1-L2 disc spaces. Moderate disc height loss at L2-L3. Mild disc height loss at L1-L2. The conus medullaris terminates at L2. There is normal signal in the caudal spinal cord. There are bridging or nearly bridging anterior endplate osteophytes throughout the lumbar and visualized lower thoracic spine. Paravertebral soft tissues are unremarkable. The following disc levels are specifically discussed: T12-L1: The disc does not extend beyond the endplate margin. There is fusion across the bilateral facet joints with mild hypertrophic changes. There is no neural foraminal stenosis. There is no central canal stenosis. L1-L2: Disc is mildly bulging with small central disc extrusion with disc material extending 3-4 mm caudal to the level of the superior endplate of L2. There is mild bilateral facet joint osteoarthritis. There is mild bilateral neural foraminal stenosis. There is mild central canal stenosis. L2-L3: Endplate osteophytes including bridging posterior osteophyte spanning the posterior endplates. There is up to moderate bilateral facet joint osteoarthritis. There is mild right and mild to moderate left neural foraminal stenosis. There is mild central canal stenosis. L3-L4: Disc is bulging. There is mild to moderate bilateral facet joint osteoarthritis. There is mild to moderate bilateral neural foraminal stenosis. There is mild central canal stenosis. L4-L5: Disc is bulging. There is moderate right and mild to moderate left facet joint osteoarthritis. There is mild to moderate bilateral neural foraminal stenosis. There is mild central canal stenosis. L5-S1: Disc is bulging. There is moderate to severe right and moderate left facet joint osteoarthritis. There is moderate bilateral neural foraminal stenosis. There is negligible central canal stenosis. IMPRESSION: 1. Mild to moderate lumbar spondylosis Reviewed, dictated and finalized at location A.
== END 2025-06-09 10:07 | disposition home or self-care (01) ==
LOC: MICIMG 10:07
PROVIDERS: PCP Family Medicine; Visit Provider Nurse Practitioner Family
DX: M47.816 Spondylosis without myelopathy or radiculopathy, lumbar region (principal)
CPT/HCPCS: 72148